=== PATIENT | male | born 1970 ===

== ENCOUNTER 2019-09-04 19:05 | Inpatient (IN) | payer OTHER, SELFPAY ==
[2019-09-04 19:24] LABS: #Basophils 0.1 thou/uL (0.0-0.2); #Eosinphils 0.4 thou/uL (0.0-0.7); #Lymphocytes 3.7 thou/uL (1.20-3.40); #Neutrophils 8.2 thou/uL (1.40-6.50); %Basophils 0.9 % (0.0-1.0); %Eosinophils 2.9 % (0.0-10.0); %Lymphocytes 27.7 % (21.0-51.0); %Monocytes 7.1 % (0.0-10.0); %Neutrophils 61.4 % (42.0-75.0); Hemoglobin 16.3 g/dL (14.0-18.0); Mean Corpuscular HGB CONC 34.6 g/dL (32.0-36.0); Mean Corpuscular Hemoglobin 32.2 pg (27.0-31.0); Platelet Count 231 thou/uL (130-400); RBC Distribution Width 11.6 % (11.5-14.5); Red Blood Cell (RBC) Count 5.06 mill/uL (4.70-6.10); White Blood Cell (WBC) Count 13.4 thou/uL (4.8-10.8)
--- NOTE | 2019-09-04 19:35 | RAD ---
PORTABLE CHEST: 09/04/19 HISTORY: Chest pain. Heart size and mediastinum are within normal limits. The lungs are clear of infiltrates. No significa nt bony findings. IMPRESSION: No active intrathoracic disease. POS: [facility]
[2019-09-04 19:46] LABS: ALT (SGPT) 31 U/L (8-55); AST (SGOT) 15 U/L (5-34); Albumin 4.2 g/dL (3.5-5.0); Alkaline Phosphatase 93 U/L (40-110); Anion Gap 14 mmol/L (10-20); BUN (Urea Nitrogen) 10 mg/dL (8.9-20.6); Bilirubin, Total 0.4 mg/dL (0.2-1.2); CK (CPK) 101 U/L (30-200); Calc. Creatinine Clearance 0 mL/min (70-130); Calcium 9.1 mg/dL (7.8-10.44); Carbon Dioxide 25 mmol/L (22-29); Chloride 100 mmol/L (98-107); Estimated GFR-MDRD 73; Globulin 3.2 g/dL (2.4-3.5); Glucose 253 mg/dL (70-105); Lipase 42 U/L (8-78); Potassium 3.9 mmol/L (3.5-5.1); Protein, Total 7.4 g/dL (6.0-8.3); Sodium 135 mmol/L (136-145)
[2019-09-04 20:06] LABS: CKMB 1.8 ng/mL (0-6.6)
[2019-09-04] MEDS ORDERED: Aspirin Chewable 81 MG TAB ONE (21:34)
--- NOTE | 2019-09-04 21:35 | PDOC.FPRHP ---
- History of Present Illness Chief Complaint: Chest Pain, Nausea History of Present Illness: Patient is a 49 yo male who presents with chest pain that started about 2 hours ago, radiated into both shoulders and down into arms and neck. Says he had similar chest pain on Saturday that lasted about 30 min and went away on its own. He describes the chest pain as indigestion and like someone sitting on his chest. He states the pain is a little better now but still present. He also reports a mild headache, nausea, lightheadeness. Did also have some SOB earlier that has since resolved. Patient normally sees Dr. Dhaliwal, says he had a stress test in the past but its been at least 2-3 years and doesn't remember results. He has been treated in the past for HTN with unknown BP med and for T2DM with Metformin but no longer takes any medications. ED Course: Given ASA 324 mg in ED - Home Medications Medication Instructions Recorded Confirmed Type No Known 09/04/19 09/04/19 History - History PMHx: HTN, DM2 PSHx: right knee surgery, tonsillectomy FHx: Mother breast cancer, father has "heart issues" Social: smokes 2 ppd, occasional EtOH use, denies illicit drug use - Review of Systems General: denies: fever/chills, weight/appetite/sleep changes, night sweats, fatigue Eyes: denies: vision changes ENT: denies: nasal congestion, rhinorrhea Respiratory: reports: shortness of breath. denies: cough, congestion, exercise intolerance Cardiovascular: reports: chest pain. denies: palpitation, edema Gastrointestinal: reports: nausea. denies: vomiting, diarrhea, constipation Genitourinary: denies: incontinence, dysuria Skin: denies: rashes, lesions Musculoskeletal: denies: pain, tenderness, swelling Neurological: denies: numbness, syncope, weakness Psychological: denies: anxiety, depression - Vital signs BP: 160/103 HR: 86 RR: 17 Tmax: 97.9 Pox: 94% on ra Wt: 90 kg - Physical Exam Constitutional: NAD, awake, alert and oriented, well developed HEENT: normocephalic and atraumatic, PERRLA, EOMI, grossly normal vision, grossly normal hearing, MMM Neck: supple, trachea midline, no JVD Chest: no-tender to palpation, no lesions Heart: RRR, normal S1/S2, no murmurs/rubs/gallops, pulses present, no edema Lungs: CTAB, no respiratory distress, good air movement, no rales/rhonchi, no wheezing Abdomen: soft, non-tender, bowel sounds present, no masses/distention Musculoskeletal: normal structure, normal tone, ROM grossly normal Neurological: no focal deficit, normal sensation Skin: no rash/lesions, good turgor, no jaundice Heme/Lymphatic: no unusual bruising or bleeding Psychiatric: normal mood and affect, intact recent and remote memory FMR H&P: Results - Labs Result Diagrams: 09/05/19 01:34 09/05/19 01:34 Lab results: WBC 13.4 thou/uL (4.8-10.8) H 09/04/19 19:15 Hgb 16.3 g/dL (14.0-18.0) 09/04/19 19:15 Hct 47.0 % (42.0-52.0) 09/04/19 19:15 MCV 93.0 fL (78.0-98.0) 09/04/19 19:15 Plt Count 231 thou/uL (130-400) 09/04/19 19:15 Neutrophils % 61.4 % (42.0-75.0) 09/04/19 19:15 Sodium 135 mmol/L (136-145) L 09/04/19 19:15 Potassium 3.9 mmol/L (3.5-5.1) 09/04/19 19:15 Chloride 100 mmol/L (98-107) 09/04/19 19:15 Carbon Dioxide 25 mmol/L (22-29) 09/04/19 19:15 BUN 10 mg/dL (8.9-20.6) 09/04/19 19:15 Creatinine 1.07 mg/dL (0.7-1.3) 09/04/19 19:15 Glucose 253 mg/dL (70-105) H 09/04/19 19:15 Calcium 9.1 mg/dL (7.8-10.44) 09/04/19 19:15 Total Bilirubin 0.4 mg/dL (0.2-1.2) 09/04/19 19:15 AST 15 U/L (5-34) 09/04/19 19:15 ALT 31 U/L (8-55) 09/04/19 19:15 Alkaline Phosphatase 93 U/L (40-110) 09/04/19 19:15 Creatine Kinase 101 U/L (30-200) 09/04/19 19:15 CK-MB (CK-2) 1.8 ng/mL (0-6.6) 09/04/19 19:15 Serum Total Protein 7.4 g/dL (6.0-8.3) 09/04/19 19:15 Albumin 4.2 g/dL (3.5-5.0) 09/04/19 19:15 Lipase 42 U/L (8-78) 09/04/19 19:15 - EKG Interpretation EKG: NSR, no ST/T wave changes - Radiology Interpretation Chest x-ray Status: report reviewed by me (no acute cardiopulmonary process) FMR H&P: A/P - Problem List (1) Atypical chest pain Current Visit: Yes Status: Acute Code(s): R07.89 - OTHER CHEST PAIN (2) HTN (hypertension) Current Visit: Yes Status: Acute Code(s): I10 - ESSENTIAL (PRIMARY) HYPERTENSION Qualifiers: Hypertension type: unspecified Qualified Code(s): I10 - Essential (primary ) hypertension (3) Hyperglycemia Current Visit: Yes Status: Acute Code(s): R73.9 - HYPERGLYCEMIA, UNSPECIFIED - Plan Patient is a 49 yo male with chest pain who is admitted for ACS r/o: #Atypical chest pain, ACS rule out -S/P 324mg aspirin in ED, continue daily -apply Nitro paste now -Nitro prn for chest pain -plan for exercise stress test in AM -initial troponin 0.032, will trend -CXR negative -EKG sinus rhythm, LVH -Heart score of 5 -check labs: Mag, Phos, TSH, A1c, FLP -EKG prn for chest pain if reoccurence #HTN -vitals q4h -Nitro paste to be given -Will restart Lisinopril 10mg daily #Hyperglycemia -glucose 253 today, will check A1c -hyperglycemic protocol in place with mild SSI & bedtime correctional scale -consider restarting Metformin #Tobacco abuse -Smoking cessation counseling -start Nicotine patch after stress test completed Diet: NPO at midnight VTE: SCDs, Walking program Code status: Full PCP: Dr. Dhaliwal Disposition: Stable, admit to obs on telemetry unit. Anticipate LOS < 2 days. FMR H&P: Upper Level - Plan Date/Time: 09/04/192131 I, Beni Morataya DO, have evaluated this patient and agree with findings/plan as outlined by logistics intern resident. Pertinent changes/additions are listed here. This is a 49 yo male with a pmh of HTN, DM2, and tobacco abuse who presents to the ER with a cc of chest pain. He states it has been going on since 1730 this evening. He describes the pain as candace to indigestion and someone sitting on his chest. He states the pain radiates to his back, neck, and both arms. He states the pain is constant and is somewhat improved at this time. He has had the pain once before on his drive to work but it resolved spontaneously. He states he was not doing anything when the pain started. Nothing specific has made it better or worse. He takes no medications on a regular basis. Objective: Vitals: BP 160/103, HR 86, RR 17, Temp 97.9, SpO2 94% on RA, Wt 90 General: NAD HEENT: AT, NC, MMM Cardo: RRR, no murmur Respiratory: CTAB Extremities: cap refill <2 sec, no edema Please see logistics intern note for further details A/P Atypical chest pain, ACS rule out -Admit to tele obs -S/P 324mg aspirin -Nitro for pain control -AM stress test -Trend troponins -CXR negative -EKG sinus rhythm, LVH -Heart score of 5 HTN -Will restart lisinopril DM2, undiagnosed -A1c, hyperglycemic protocol -Likely start metformin if positive Tobacco abuse -Counselled on cessation -Nicotine patch Code: Full Prophylaxis: Walking program Family: None at bedside Fluids: SL Diet: NPO at midnight Disposition: DC in 1-2 days PCP: Dr. Dhaliwal Addendum - Attending - Attending Attestation Date/Time: 09/05/191956 I personally evaluated the patient and discussed the management with Dr. Joseph following admission last night. I agree with the History, Examination, Assessment and Plan documented above with any addition or exceptions noted below.
[2019-09-04] MEDS ORDERED: Ondansetron ODT 4 MG TAB SL PRN (22:43)
[2019-09-04] MEDS ORDERED: Acetaminophen 325 MG TAB PO PRN ×2 (22:43→23:11)
[2019-09-04] MEDS ORDERED: Ondansetron PF 4 MG/2 ML Vial IVP PRN ×2 (22:43→23:11)
[2019-09-04 23:10] VITALS: BMI 32.5
[2019-09-04] MEDS ORDERED: Nitroglycerin 0.4 MG TAB (25 Tab Bottle) PO PRN (23:11)
[2019-09-04] MEDS ORDERED: Senokot S 8.6-50 MG TAB PO PRN (23:11)
[2019-09-04] MEDS ORDERED: HumaLOG 300 UNITS/3 ML VIAL SC PRN ×2 (23:11)
[2019-09-04] MEDS ORDERED: Dextrose 5% in Water 1,000 ML IV PRN (23:11)
[2019-09-04] MEDS ORDERED: Ondansetron ODT 4 MG TAB PO PRN (23:11)
[2019-09-04] MEDS ORDERED: Dextrose 50% Abboject 50 ML SYRINGE SLOW IVP PRN (23:11)
[2019-09-04 23:20] LABS: Troponin I 0.216 ng/mL (< 0.028)
[2019-09-04 23:30] LABS: Hemoglobin A1c 7.8 % (4.0-6.0)
[2019-09-04] MEDS ORDERED: Nitroglycerin 2% Ointment 1 INCH/1 GM Packet TOP SCH (23:30)
[2019-09-04 23:59] LABS: Magnesium 2.1 mg/dL (1.6-2.6); Phosphorus 3.4 mg/dL (2.3-4.7)
[2019-09-05] MEDS ORDERED: Enoxaparin Sodium 100 MG/ML SYRINGE SC SCH ×3 (00:22→21:00)
[2019-09-05] MEDS ORDERED: Famotidine 20 MG TAB PO SCH (00:30)
[2019-09-05 01:42] LABS: #Basophils 0.1 thou/uL (0.0-0.2); #Eosinphils 0.4 thou/uL (0.0-0.7); #Monocytes 1.2 thou/uL (0.11-0.59); #Neutrophils 8.3 thou/uL (1.40-6.50); %Eosinophils 2.6 % (0.0-10.0); %Lymphocytes 28.6 % (21.0-51.0); %Monocytes 8.5 % (0.0-10.0); %Neutrophils 59.3 % (42.0-75.0); Hemoglobin 16.3 g/dL (14.0-18.0); Mean Corpuscular Hemoglobin 32.3 pg (27.0-31.0); Mean Corpuscular Volume 94.9 fL (78.0-98.0); Mean Platelet Volume 7.7 fL (7.4-10.4); Platelet Count 231 thou/uL (130-400); RBC Distribution Width 11.6 % (11.5-14.5); Red Blood Cell (RBC) Count 5.06 mill/uL (4.70-6.10); White Blood Cell (WBC) Count 13.9 thou/uL (4.8-10.8)
[2019-09-05 02:03] LABS: ALT (SGPT) 30 U/L (8-55); AST (SGOT) 30 U/L (5-34); Albumin 4.1 g/dL (3.5-5.0); Alkaline Phosphatase 89 U/L (40-110); Anion Gap 11 mmol/L (10-20); BUN (Urea Nitrogen) 11 mg/dL (8.9-20.6); Bilirubin, Total 0.3 mg/dL (0.2-1.2); Calc. Creatinine Clearance 124 mL/min (70-130); Calcium 9.5 mg/dL (7.8-10.44); Carbon Dioxide 30 mmol/L (22-29); Cardiac Risk 6.6 (Less than 4.5); Chloride 103 mmol/L (98-107); Cholesterol 224 mg/dl (< 200 Desired); Estimated GFR-MDRD 81; Glucose 156 mg/dL (70-105); HDL Cholesterol 34 mg/dL (>60 Neg Risk); LDL Cholesterol, Calculated 141 mg/dL; Potassium 4.1 mmol/L (3.5-5.1); Protein, Total 7.1 g/dL (6.0-8.3); Sodium 140 mmol/L (136-145); Triglycerides 245 mg/dL (Less than 150)
[2019-09-05 02:08] LABS: Troponin I 1.162 ng/mL (< 0.028)
--- NOTE | 2019-09-05 06:12 | PDOC.FM ---
Addendum entered and electronically signed by Roger Hubbard DO 09/05/19 08:25 : NSTEMI - elevated troponins. Likely unstable angina. Cardiology to see patient this morning. Original Note: - Subjective Subjective: Pt denies any events overnight. When asked about chest pain he denies any or anything similar to the pain that brought him into the ED but does note some mild intermittent heartburn as he lies down. When asked about his home medications he states that he stopped them on his own since he was "doing good" . Denies discussing this with his PCP. Discussed the plan to talk to cardiology and the possibility of a cath which he is agreeable to. Currently denies any SOB , nausea, radiating pain. - Objective Vital Signs & Weight: Vital Signs (12 hours) Temp Pulse Resp BP Pulse Ox 09/05/19 03:30 76 18 114/68 92 L 09/04/19 23:55 98.4 F 76 16 128/79 94 L 09/04/19 23:11 97 09/04/19 22:35 98.0 F 73 14 168/101 H 97 Weight Weight 97.069 kg Result Diagrams: 09/05/19 01:34 09/05/19 01:34 Phys Exam - Physical Examination Constitutional: NAD HEENT: moist MMs, sclera anicteric JVD noted while laying around 20 degrees Respiratory: clear to auscultation bilateral Cardiovascular: RRR, no significant murmur, no rub CP not reproducible with palpation Gastrointestinal: soft, non-tender, no distention, positive bowel sounds Musculoskeletal: no edema, pulses present Neurological: moves all 4 limbs Psychiatric: normal affect, A&O x 3 Skin: no rash, cap refill <2 seconds Dx/Plan (1) Atypical chest pain Code(s): R07.89 - OTHER CHEST PAIN Status: Acute (2) HTN (hypertension) Code(s): I10 - ESSENTIAL (PRIMARY) HYPERTENSION Status: Acute Qualifiers: Hypertension type: unspecified Qualified Code(s): I10 - Essential (primary ) hypertension (3) Hyperglycemia Code(s): R73.9 - HYPERGLYCEMIA, UNSPECIFIED Status: Acute - Plan Plan: Patient is a 49 yo male with chest pain who is admitted for ACS r/o: Atypical chest pain, ACS rule out -325 asa daily -Nitro prn for chest pain -troponin uptrending, now positive at 3.51, will continue to trend - started therapeutic lovenox -will consult cardiology, stress vs cath -EKG sinus rhythm, LVH HTN -Will restart Lisinopril 10mg daily Hyperglycemia -glucose 253 today, A1c 7.8 -hyperglycemic protocol in place with mild SSI & bedtime correctional scale -pt refuses metformin, will need to f/u outpt for therapy decisions Tobacco abuse -Smoking cessation counseling -start Nicotine patch after stress test completed Diet: NPO at midnight VTE: SCDs, Walking program Code status: Full PCP: Dr. Dhaliwal Disposition: Obs tele, will discuss elevated troponins today with cardiology for stress vs cath. Addendum - Attending - Attending Attestation Date/Time: 09/05/19 1005 I personally evaluated the patient and discussed the management with Dr. Hubbard. I agree with the History, Examination, Assessment and Plan documented above with any addition or exceptions noted below. Patient admitted for ACS. Appears to be NSTEMI at this time. Cardiology consulted and likely heart cath today. Further mgmt pending that result. Risk stratification shows hyperlipidemia that will need treatment as well as uncontrolled DM.
[2019-09-05] MEDS: Nitroglycerin 2% Ointment 1 INCH/1 GM Packet TOP SCH ×3 (06:42→21:01)
[2019-09-05] MEDS ORDERED: Communication Order-Pharmacy FS SCH (08:30)
[2019-09-05] MEDS ORDERED: Diazepam 5 MG TAB PO SCH (08:30)
[2019-09-05 08:38] LABS: Troponin I 6.112 ng/mL (< 0.028)
--- NOTE | 2019-09-05 08:54 | CON ---
DATE OF CONSULTATION: 09/05/2019 REASON FOR CONSULTATION: Non-ST elevation myocardial infarction with ongoing pain. HISTORY OF PRESENT ILLNESS: Mr. Hdz is a 49-year-old gentleman, who came to the hospital last night with chest pain up across his upper chest and shoulders and up in the upper back and into his arms. The patient's pain was relieved. He was given aspirin, also given enoxaparin and nitrates. The patient states he has "indigestion," now occasional discomfort in the upper chest and back , also some last night, but it is mild compared to what he had last night. PAST MEDICAL HISTORY: Negative for any cardiac operations or procedures. MEDICATIONS: None. ALLERGIES: NONE. SOCIAL HISTORY: Smoked up until this admission. REVIEW OF SYSTEMS: CONSTITUTIONAL: No significant weight gain or loss. VISION: No changes. HEARING: No changes. PULMONARY: No cough or wheezing. GASTROINTESTINAL: No nausea, vomiting, or diarrhea. SKIN: No rashes. NEUROLOGIC: No unilateral weakness or numbness. PSYCHIATRIC: No unusual depression or anxiety. PHYSICAL EXAMINATION: GENERAL: This is a pleasant 49-year-old man, resting comfortably. VITAL SIGNS: Blood pressure is 113/56, pulse 66 and regular. LUNGS: Clear. CARDIAC: Normal S1, normal S2. ABDOMEN: Obese, nontender. EXTREMITIES: Warm and dry. No clubbing, cyanosis, or edema. He has good peripheral pulses. LABORATORY DATA: Initial troponin was 1.1, followup is 3.5. EKG; sinus rhythm, 0.[address] elevation in leads II and III, biphasic T-wave in lead III. Also had one episode of 4-beat ventricular tachycardia. Cholesterol, LDL is 141. ASSESSMENT: 1. Non-ST elevation myocardial infarction. 2. History of smoking. 3. He was hypertensive on admission. 4. Received Lovenox at 1 a.m. PLAN: 1. We will proceed to cardiac catheterization aiming for 10 a.m. 2. Cardiac cath discussed, risks and benefits of procedure, risk of stroke, heart attack, iodine allergy, loss of blood supply to leg or kidney, stent thrombosis, stent restenosis. He understands and wishes to proceed. Job ID: [id number] [facility]
[2019-09-05] MEDS: Aspirin 325 mg Enteric Coated Tablet PO SCH (09:04)
[2019-09-05] MEDS: Sodium Chloride 0.9% 1,000 ML IV SCH ×2 (09:04→16:26)
[2019-09-05] MEDS: Famotidine 20 MG TAB PO SCH ×2 (09:04→21:02)
[2019-09-05] MEDS: Lisinopril 10 MG TAB PO SCH (09:04)
[2019-09-05] MEDS ORDERED: Iopamidol 370 76% 100 ML VIAL ONE (09:06)
[2019-09-05] MEDS ORDERED: Heparin 10,000 UNITS/1 ML VIAL ONE (09:46)
[2019-09-05] MEDS ORDERED: Fentanyl 100 MCG/2 ML VIAL ONE (10:29)
[2019-09-05] MEDS ORDERED: Midazolam HCl 2 mg/2 ml Vial ONE (10:29)
[2019-09-05] MEDS ORDERED: Nitroglycerin 100MG/250ML BOT 250 ML ONE (10:32)
[2019-09-05] MEDS ORDERED: Sodium Chloride 0.9% 200 ML IV PRN (11:42)
[2019-09-05] MEDS ORDERED: Acetaminophen/Codeine 30-300mg Tablet PO PRN ×2 (11:42)
[2019-09-05] MEDS ORDERED: Nitroglycerin 0.4 MG TAB (25 Tab Bottle) SL PRN (11:42)
[2019-09-05] MEDS ORDERED: Acetaminophen/Codeine 30-300mg Tablet ONE (14:30)
[2019-09-05 14:35] LABS: Troponin I 12.243 ng/mL (< 0.028)
[2019-09-05] MEDS: Atorvastatin Calcium 40 MG TAB PO SCH (21:02)
[2019-09-06] MEDS: Nitroglycerin 2% Ointment 1 INCH/1 GM Packet TOP SCH ×2 (05:58→20:31)
--- NOTE | 2019-09-06 06:14 | PDOC.FM ---
- Subjective Subjective: Pt states that he had no problems with the cath procedure yesterday or following. He has severe CAD and will require a CABG with pt reports is to be done on Saturday. Denies any current chest pain or complaints. Pt continues to refuse any lab draws or insulin administration currently. Discussed importance of managing his glucose as a risk factor for his heart disease. - Objective Vital Signs & Weight: Vital Signs (12 hours) Temp Pulse Resp BP BP Pulse Ox 09/06/19 04:00 98.0 F 87 20 112/61 96 09/06/19 00:00 73 18 09/05/19 19:58 98.4 F 86 16 111/66 96 Weight Weight 97.069 kg I&O: 09/04/19 09/05/19 09/06/19 06:59 06:59 06:59 Intake Total 120 2550 Balance 120 2550 Result Diagrams: 09/05/19 01:34 09/05/19 01:34 Phys Exam - Physical Examination Constitutional: NAD HEENT: moist MMs, sclera anicteric Neck: full ROM Respiratory: no wheezing, clear to auscultation bilateral Cardiovascular: RRR, no significant murmur Gastrointestinal: soft, non-tender Musculoskeletal: no edema, pulses present Neurological: moves all 4 limbs Psychiatric: normal affect, A&O x 3 Dx/Plan (1) NSTEMI (non-ST elevated myocardial infarction) Code(s): I21.4 - NON-ST ELEVATION (NSTEMI) MYOCARDIAL INFARCTION Status: Acute (2) HTN (hypertension) Code(s): I10 - ESSENTIAL (PRIMARY) HYPERTENSION Status: Acute Qualifiers: Hypertension type: unspecified Qualified Code(s): I10 - Essential (primary ) hypertension (3) Coronary artery disease Code(s): I25.10 - ATHSCL HEART DISEASE OF [place] CORONARY ARTERY W/O ANG PCTRS Status: Acute (4) Diabetes mellitus type 2 with complications, uncontrolled Code(s): E11.8 - TYPE 2 DIABETES MELLITUS WITH UNSPECIFIED COMPLICATIONS; E11.65 - TYPE 2 DIABETES MELLITUS WITH HYPERGLYCEMIA Status: Acute - Plan Plan: Patient is a 49 yo male with chest pain who is admitted for ACS r/o: NSTEMI -325 asa daily -Nitro prn for chest pain -troponin uptrended to 12 yesterday -cardiac cath by Dr. Araiza yesterday with severe CAD -pt reports plan for CABG in 2 days HTN -Continue Lisinopril 10mg daily Hyperglycemia -A1c 7.8 -pt refuses metformin and SSI -chart shows uninsured but pt states he has some form of insurance -will start jardiance while inpt w/ CM consult for acquiring as outpt -sulfonylurea not good option for patient with known heart disease Tobacco abuse -Smoking cessation counseling -start Nicotine patch after stress test completed Diet: NPO at midnight VTE: SCDs, Walking program Code status: Full PCP: Dr. Dhaliwal Disposition: Inpt tele, cardiac cath yesterday showed severe right and left sided coronary atherosclerosis. Per pt is set to have CABG performed on Saturday of this week. Will continue to attempt to optimize pt for discharge going forward. Addendum - Attending - Attending Attestation Date/Time: 09/06/19 9191 I personally evaluated the patient and discussed the management with Dr. Hubbard. I agree with the History, Examination, Assessment and Plan documented above with any addition or exceptions noted below. Patient stable. Awaiting further cardiology recs but it sounds like he may be going for CABG early this week for his CAD and NSTEMI.
[2019-09-06] MEDS: Sodium Chloride 0.9% 1,000 ML IV SCH (08:04)
[2019-09-06] MEDS: Famotidine 20 MG TAB PO SCH ×2 (08:40→20:30)
[2019-09-06] MEDS: Aspirin 325 mg Enteric Coated Tablet PO SCH (08:40)
[2019-09-06] MEDS: Empagliflozin 10 MG TAB PO SCH (08:43)
[2019-09-06] MEDS: Lisinopril 10 MG TAB PO SCH (08:49)
[2019-09-06] MEDS ORDERED: Communication Order-Pharmacy FS SCH (08:52)
[2019-09-06] MEDS: Atorvastatin Calcium 40 MG TAB PO SCH (20:30)
[2019-09-07 06:13] LABS: Critical Call Chem Troponin I RESULT DECREASING; Troponin I 9.744 ng/mL (< 0.028)
[2019-09-07] MEDS: Nitroglycerin 2% Ointment 1 INCH/1 GM Packet TOP SCH ×3 (06:31→21:11)
--- NOTE | 2019-09-07 07:19 | PDOC.FM ---
- Subjective Subjective: NAEO. Patient remains stable on floor. No complaints this AM. - Objective MAR Reviewed: Yes Vital Signs & Weight: Vital Signs (12 hours) Temp Pulse Resp BP BP Pulse Ox 09/07/19 04:00 98.4 F 71 18 127/80 94 L 09/07/19 00:23 94 L 09/06/19 20:00 98.4 F 74 18 110/72 94 L Weight Weight 97.296 kg I&O: 09/06/19 09/07/19 09/08/19 06:59 06:59 06:59 Intake Total 2550 2600 Balance 2550 2600 Result Diagrams: 09/10/19 04:17 09/10/19 04:17 Phys Exam - Physical Examination Constitutional: NAD HEENT: moist MMs Neck: supple, full ROM Respiratory: no wheezing, no rales, no rhonchi, clear to auscultation bilateral Cardiovascular: RRR, no significant murmur Gastrointestinal: soft, no distention, positive bowel sounds Neurological: non-focal, moves all 4 limbs Psychiatric: normal affect, A&O x 3 Skin: normal turgor Dx/Plan (1) Atypical chest pain Code(s): R07.89 - OTHER CHEST PAIN Status: Resolved (2) Coronary artery disease Code(s): I25.10 - ATHSCL HEART DISEASE OF [place] CORONARY ARTERY W/O ANG PCTRS Status: Chronic (3) Diabetes mellitus type 2 with complications, uncontrolled Code(s): E11.8 - TYPE 2 DIABETES MELLITUS WITH UNSPECIFIED COMPLICATIONS; E11.65 - TYPE 2 DIABETES MELLITUS WITH HYPERGLYCEMIA Status: Chronic (4) HTN (hypertension) Code(s): I10 - ESSENTIAL (PRIMARY) HYPERTENSION Status: Chronic Qualifiers: Hypertension type: unspecified Qualified Code(s): I10 - Essential (primary ) hypertension (5) Hyperglycemia Code(s): R73.9 - HYPERGLYCEMIA, UNSPECIFIED Status: Acute (6) NSTEMI (non-ST elevated myocardial infarction) Code(s): I21.4 - NON-ST ELEVATION (NSTEMI) MYOCARDIAL INFARCTION Status: Acute - Plan Plan: Patient is a 49 yo male with chest pain who is admitted for ACS r/o who was found to have an NSTEMI in the setting of severe CAD: NSTEMI - Continue 325 asa daily & RONALD nitropaste - s/p cardiac cath by Dr. Araiza on 09/04 & noted to have severe CAD - Patient to undergo CABG on 09/[address] Carvalho HTN - Continue nitro & holding entresto per cards recs. BP controlled. DMII -A1c 7.8 -pt refuses all DM meds - Goal to keep BG levels between 140-180 while inpatient. Needs counseling on diabetes & good outpatient follow-up arianna. in setting of CAD. - Shotblast Operator consulted for DM diet teaching. Tobacco abuse -Smoking cessation counseling -Nicotine patch Diet: HH, NPO at midnight VTE: SCDs, Walking program Code status: Full IVFs: SL Abx: None PCP: Dr. Dhaliwal Disposition: Inpt tele, cardiac cath on 09/04 showed severe right and left sided CAD. Patient is RONALD to have CABG performed on 09/07. Addendum - Attending - Attending Attestation Date/Time: 09/15/19 1529 I personally evaluated the patient and discussed the management with Dr. Mcclellan on 09/07/19. I agree with the History, Examination, Assessment and Plan documented above with any addition or exceptions noted below. Medical mgt. s/p NSTEMI, awaiting CABG.
[2019-09-07] MEDS: Aspirin 325 mg Enteric Coated Tablet PO SCH (08:32)
[2019-09-07] MEDS: Empagliflozin 10 MG TAB PO SCH (08:32)
[2019-09-07] MEDS: Famotidine 20 MG TAB PO SCH ×2 (08:33→20:39)
[2019-09-07] MEDS: Lisinopril 10 MG TAB PO SCH (08:36)
[2019-09-07] MEDS: Atorvastatin Calcium 40 MG TAB PO SCH (20:38)
[2019-09-08] MEDS ORDERED: CEFAZOLIN 2 GM IVPB SCH (02:30)
[2019-09-08] MEDS: Nitroglycerin 2% Ointment 1 INCH/1 GM Packet TOP SCH (04:47)
[2019-09-08] MEDS: Lisinopril 10 MG TAB PO SCH (05:06)
[2019-09-08] MEDS ORDERED: Albumin 5% 500 ML ONE ×2 (06:16→06:21)
--- NOTE | 2019-09-08 06:16 | PDOC.FM ---
- Subjective Subjective: NAEO. Patient down for cath at time of rounding. Will examine later today once back from surgery. - Objective MAR Reviewed: Yes Vital Signs & Weight: Vital Signs (12 hours) Temp Pulse Resp BP BP Pulse Ox 09/08/19 05:06 139/82 09/08/19 03:49 98.4 F 76 16 139/82 92 L 09/08/19 01:41 93 L 09/07/19 19:22 98.0 F 81 16 125/82 93 L Weight Weight 93.304 kg I&O: 09/06/19 09/07/19 09/08/19 06:59 06:59 06:59 Intake Total 2550 2600 3100 Balance 2550 2600 3100 Result Diagrams: 09/05/19 01:34 09/05/19 01:34 Phys Exam - Physical Examination See Subjective, patient down for procedure Dx/Plan (1) Atypical chest pain Code(s): R07.89 - OTHER CHEST PAIN Status: Resolved (2) Coronary artery disease Code(s): I25.10 - ATHSCL HEART DISEASE OF [place] CORONARY ARTERY W/O ANG PCTRS Status: Chronic (3) Diabetes mellitus type 2 with complications, uncontrolled Code(s): E11.8 - TYPE 2 DIABETES MELLITUS WITH UNSPECIFIED COMPLICATIONS; E11.65 - TYPE 2 DIABETES MELLITUS WITH HYPERGLYCEMIA Status: Chronic (4) HTN (hypertension) Code(s): I10 - ESSENTIAL (PRIMARY) HYPERTENSION Status: Chronic Qualifiers: Hypertension type: unspecified Qualified Code(s): I10 - Essential (primary ) hypertension (5) Hyperglycemia Code(s): R73.9 - HYPERGLYCEMIA, UNSPECIFIED Status: Acute (6) NSTEMI (non-ST elevated myocardial infarction) Code(s): I21.4 - NON-ST ELEVATION (NSTEMI) MYOCARDIAL INFARCTION Status: Acute - Plan Plan: Patient is a 49 yo male with chest pain who is admitted for ACS r/o who was found to have an NSTEMI in the setting of severe CAD: NSTEMI - Trop uptrended to 12 but has since downtrended. Has been stable on floor on [facility] nitropaste & ASA per cards - s/p cardiac cath by Dr. Araiza on 09/04 & noted to have severe CAD - Patient to undergo CABG today with Dr. Carvalho HTN - Holding meds per CV surg for procedure this AM & will resume as tolerated by patient per CV surg & cards recs post-op DMII - A1c 7.8 - Goal to keep BG levels between 140-180 while inpatient. Will again credit support counselor on diabetes & good outpatient follow-up arianna. in setting of CAD - Will continue SSI and jardiance post-op Tobacco abuse -Smoking cessation counseling -Nicotine patch post-op PRN Diet: NPO for CABG VTE: SCDs, Walking program Code status: Full IVFs: SL Abx: None PCP: Dr. Dhaliwal Disposition: Patient to undergo multi-vessel CABG this AM with Dr. Carvalho.
[2019-09-08] MEDS ORDERED: Midazolam HCl 2 mg/2 ml Vial ONE ×2 (06:27→07:06)
[2019-09-08] MEDS ORDERED: Vecuronium 10 MG VIAL ONE ×2 (06:27→09:07)
[2019-09-08] MEDS ORDERED: Fentanyl 100 MCG/2 ML VIAL ONE (06:27)
[2019-09-08] MEDS ORDERED: Midazolam HCl 5 mg/5 ml Vial ONE (06:27)
[2019-09-08] MEDS ORDERED: Dexmedetomidine 200 MCG/2 ML VIAL ONE (06:27)
[2019-09-08] MEDS ORDERED: Heparin 10,000 UNITS/1 ML VIAL 30,000 UNITS in Sodium Chloride 0.9% 1,000 ML FS SCH (07:00)
[2019-09-08] MEDS ORDERED: Insulin Regular 300 UNITS/3 ML VIAL ONE (08:53)
[2019-09-08] MEDS ORDERED: Calcium Chloride 1 GM/10 ML Abboject SYRINGE ONE (09:07)
[2019-09-08] MEDS ORDERED: Magnesium Sulfate 1 GM/2 ML VIAL ONE (09:07)
[2019-09-08] MEDS ORDERED: Thrombin 5000 UNITS/5 ML VIAL ONE (09:07)
[2019-09-08] MEDS ORDERED: Heparin 30,000 units/30 ml VIAL ONE (09:07)
[2019-09-08] MEDS ORDERED: Ketorolac Tromethamine 30 MG/ML VIAL ONE (09:07)
[2019-09-08] MEDS ORDERED: Aminocaproic Acid 5 GM/20 ML VIAL ONE (09:07)
[2019-09-08] MEDS ORDERED: Papaverine 60 MG/2 ML VIAL ONE (09:07)
[2019-09-08] MEDS ORDERED: EPHEDRINE 25 MG/5 ML SYRINGE ONE (09:07)
[2019-09-08] MEDS ORDERED: Lidocaine 2% PF 5 ML VIAL ONE (09:07)
[2019-09-08] MEDS ORDERED: Cardioplegic Soln 1,000 ML BAG ONE (09:07)
[2019-09-08] MEDS ORDERED: Glycopyrrolate 0.2 MG/ML 5 ML SYRINGE ONE (09:07)
[2019-09-08] MEDS ORDERED: Potassium Chloride 60 MEQ/30 ML VIAL ONE (09:07)
[2019-09-08] MEDS ORDERED: Sodium Bicarb 50 MEQ/50 ML Abboject 8.4% SYRINGE ONE (09:07)
[2019-09-08] MEDS ORDERED: Protamine Sulfate 50 MG/5 ML VIAL ONE (09:07)
[2019-09-08] MEDS ORDERED: PHENYLEPHRINE-NS 100 MCG/ML 10 ML SYRINGE ONE (09:07)
[2019-09-08] MEDS ORDERED: Heparin 5,000 UNITS/ML VIAL ONE (09:07)
[2019-09-08] MEDS ORDERED: Dexamethasone 20 MG/5 ML VIAL ONE (09:07)
[2019-09-08] MEDS ORDERED: Lidocaine 1% PF 5 ML VIAL ONE ×2 (09:07)
[2019-09-08] MEDS ORDERED: Ondansetron PF 4 MG/2 ML Vial ONE (09:07)
[2019-09-08] MEDS: Empagliflozin 10 MG TAB PO SCH (09:30)
[2019-09-08] MEDS: Aspirin 325 mg Enteric Coated Tablet PO SCH (09:30)
[2019-09-08] MEDS: Famotidine 20 MG TAB PO SCH (09:30)
[2019-09-08] MEDS ORDERED: DOPamine 400 MG/D5W 250 ML 250 ML IVPB PRN (11:00)
[2019-09-08] MEDS ORDERED: Nitroglycerin 50 MG/250 ML BOT 250 ML IVPB PRN (11:00)
[2019-09-08] MEDS ORDERED: Fentanyl 100 MCG/2 ML VIAL SLOW IVP PRN (11:00)
[2019-09-08] MEDS ORDERED: Ondansetron PF 4 MG/2 ML Vial IVP PRN (11:00)
[2019-09-08] MEDS ORDERED: Morphine 2 MG/ML SYRINGE SLOW IVP PRN (11:00)
[2019-09-08] MEDS ORDERED: Norepinephrine 8 MG in Dextrose 5% in Water 242 ML IVPB PRN (11:00)
[2019-09-08] MEDS ORDERED: Bisacodyl 10 MG SUPP PR PRN (11:00)
[2019-09-08] MEDS ORDERED: HYDROcodone/Acetaminophen 5/325 mg Tablet PO PRN (11:00)
[2019-09-08] MEDS ORDERED: Post-Op Insulin Drip Protocol IVPB ONE (11:00)
[2019-09-08] MEDS ORDERED: Guaifenesin DM 100-10/5 ML UDCUP PO PRN (11:00)
[2019-09-08] MEDS ORDERED: Mag-Al 1200 mg/1200 mg/30 ML UDCUP PO PRN (11:00)
[2019-09-08] MEDS ORDERED: Promethazine HCl 25 MG/ML VIAL IM PRN (11:00)
[2019-09-08] MEDS ORDERED: Bisacodyl 5 MG TAB PO PRN (11:00)
[2019-09-08] MEDS ORDERED: Potassium Chloride 20 MEQ/100 ML PREMIX BAG IVPB PRN (11:00)
[2019-09-08] MEDS ORDERED: Acetaminophen 325 MG TAB PO PRN (11:00)
[2019-09-08] MEDS ORDERED: hydrALAZINE 20 MG/ML VIAL SLOW IVP PRN (11:00)
[2019-09-08] MEDS ORDERED: niCARdipine 25 MG in Sodium Chloride 0.9% 250 ML 250 ML IVPB PRN (11:00)
[2019-09-08] MEDS ORDERED: Hetastarch 6% 500 ML 500 ML IVPB PRN (11:00)
[2019-09-08] MEDS ORDERED: Magnesium 2 GM/50 ML 2 GM in Premix Bag 1 BAG IVPB SCH (11:00)
[2019-09-08] MEDS ORDERED: Dextrose 5% in Water 1,000 ML IV PRN (11:11)
[2019-09-08] MEDS ORDERED: HUMULIN R 100 UNITS in Sodium Chloride 0.9% 100 ML IVPB SCH (11:11)
[2019-09-08] MEDS ORDERED: Dextrose 50% Abboject 50 ML SYRINGE SLOW IVP PRN (11:11)
[2019-09-08] MEDS ORDERED: Insulin Regular 300 UNITS/3 ML VIAL SC PRN (11:11)
[2019-09-08 11:30] LABS: #Eosinphils 0.1 thou/uL (0.0-0.7); #Lymphocytes 1.1 thou/uL (1.20-3.40); #Monocytes 0.8 thou/uL (0.11-0.59); #Neutrophils 17.1 thou/uL (1.40-6.50); %Basophils 0.3 % (0.0-1.0); %Eosinophils 0.5 % (0.0-10.0); %Lymphocytes 5.5 % (21.0-51.0); %Monocytes 4.4 % (0.0-10.0); %Neutrophils 89.4 % (42.0-75.0); Hemoglobin 13.6 g/dL (14.0-18.0); Mean Corpuscular HGB CONC 34.3 g/dL (32.0-36.0); Mean Corpuscular Hemoglobin 32.1 pg (27.0-31.0); Mean Corpuscular Volume 93.6 fL (78.0-98.0); Platelet Count 167 thou/uL (130-400); RBC Distribution Width 11.5 % (11.5-14.5); Red Blood Cell (RBC) Count 4.25 mill/uL (4.70-6.10); White Blood Cell (WBC) Count 19.1 thou/uL (4.8-10.8)
[2019-09-08 11:31] LABS: INR-International Normal Ratio 1.1; PTT 33.2 SEC (22.9-36.1); Prothrombin Time 14.6 SEC (12.0-14.7)
[2019-09-08 11:35] LABS: Anion Gap 12 mmol/L (10-20); BUN (Urea Nitrogen) 14 mg/dL (8.9-20.6); Calc. Creatinine Clearance 124 mL/min (70-130); Calcium 8.6 mg/dL (7.8-10.44); Carbon Dioxide 23 mmol/L (22-29); Chloride 108 mmol/L (98-107); Estimated GFR-MDRD 85; Glucose 104 mg/dL (70-105); Sodium 139 mmol/L (136-145)
--- NOTE | 2019-09-08 11:35 | RAD ---
EXAM: CHEST ONE VIEW HISTORY: Post open heart surgery. COMPARISON: 09/04/2019 FINDINGS: There has been interval postsurgical changes related to CABG. Right subclavian central venous cathete r is noted in place with tip overlying the expected location of the right atrium. Mediastinal drains are noted in place. Cardiac silhouette is magnified by projection. Pulmonary vasculature is wi thin normal limits. No pneumothorax or pleural effusion is identified. There is mild atelectasis overlying the left hilar region. No other interval change from prior exam. IMPRESSION: Interval postsurgical changes related to CABG with lines and tubes in place.
--- NOTE | 2019-09-08 11:51 | OP ---
DATE OF PROCEDURE: 09/07/2019 PREOPERATIVE DIAGNOSIS: Status post inferior myocardial infarction. PROCEDURES PERFORMED: Coronary artery bypass graft x2, left internal mammary artery to an LAD measuring 1.5 mm with posterior plaque, and saphenous vein graft to a 1.5 mm distal right coronary artery. INBOUND CUSTOMER SERVICE AGENT: Dr. Fischer. TRANSFUSION: None. DESCRIPTION OF PROCEDURE: After adequate anesthesia had been obtained, the patient was prepped and draped. I performed a median sternotomy, entering the left pleura with a saw. After opening the pericardium, the inferior surface of the heart was inspected. It appeared that the distal right ventricular free wall probably had infarcted. There appeared to be a bypassable target on the right side. Following this, Dr. Fischer harvested the left greater saphenous vein from the ankle using an open technique while I performed a left internal mammary artery harvest. The patient was heparinized and the mammary divided distally and passed posterior to the thymus gland. The aorta and right atrium were cannulated, and the right atrium was fairly well under the right sternal edge. The patient was placed on cardiopulmonary bypass. Aorta cross clamped and a liter of cold blood cardioplegia given through the aortic root. The right coronary artery was opened mid to distal portion and saphenous vein anastomosed here. The LAD was then opened and the left internal mammary artery anastomosed to the LAD. Cross-clamp was removed and the partial occluding clamp placed and a single proximal anastomosis performed on the aortic root. The patient was then weaned from cardiopulmonary bypass. Cannula was removed. Protamine given systemically and the aortic cannulation site secured with a 4-0 Prolene suture. Mediastinal and left pleural drains were placed. There was slight excess on the vein graft and the mammary graft, but they lie nicely in the pericardium. The sternum was then reapproximated with a combination of #7 interrupted wire as well as two zip ties. Vancomycin paste on the sternal edges, platelet rich blood and platelet poor plasma on the bone and subcutaneous tissue. Skin and subcutaneous tissue were closed in layers, and the patient is to be taken to the ICU in guarded condition. Job ID: [id number]
[2019-09-08] MEDS: Ketorolac Tromethamine 30 MG/ML VIAL IVP SCH ×3 (11:54→23:55)
[2019-09-08] MEDS: Lactated Ringer's 1,000 ML IV SCH (12:00)
[2019-09-08] MEDS: CEFAZOLIN 2 GM in Premix Bag 1 BAG IVPB SCH ×2 (14:09→22:39)
[2019-09-08 16:56] LABS: Hemoglobin 14.2 g/dL (14.0-18.0)
[2019-09-08 17:12] LABS: Potassium 4.5 mmol/L (3.5-5.1)
--- NOTE | 2019-09-08 17:51 | PDOC.BPN ---
- Brief Progress Note Subjective: Patient examined in CCU once more alert following procedure this AM. Reports feeling like he's "been run over by a truck" which he states was expected. Otherwise, denies any N/V, fever/chills, & is tolerating PO. Objective: Vitals: HR 75 BP 93/55 RR 17 O2 sat 93% on RA Tmax 99F Constitutional: NAD HEENT: moist MMs Neck: supple, full ROM Respiratory: no wheezing, no rales, no rhonchi, clear to auscultation bilateral Cardiovascular: RRR, no significant murmur Gastrointestinal: soft, no distention, positive bowel sounds Neurological: non-focal, moves all 4 limbs Psychiatric: normal affect, A&O x 3 Skin: normal turgor w/ clean, dry & intact dressing over center of chest noted A&P: Continue to monitor closely overnight in the CCU with likely transfer to telemetry tomorrow per CV surg recs & clinical course.
[2019-09-08] MEDS: Fentanyl 100 MCG/2 ML VIAL SLOW IVP PRN ×2 (19:44→22:49)
[2019-09-08] MEDS ORDERED: Famotidine/PF 20 mg/2ml Vial SLOW IVP SCH (21:00)
[2019-09-08] MEDS: Atorvastatin Calcium 40 MG TAB PO SCH (21:01)
[2019-09-09] MEDS: HYDROcodone/Acetaminophen 5/325 mg Tablet PO PRN ×4 (00:28→17:14)
[2019-09-09] MEDS: Lactated Ringer's 1,000 ML IV SCH (00:33)
[2019-09-09 04:23] LABS: #Monocytes 1.6 thou/uL (0.11-0.59); #Neutrophils 13.9 thou/uL (1.40-6.50); %Basophils 0.1 % (0.0-1.0); %Eosinophils 0.1 % (0.0-10.0); %Lymphocytes 11.3 % (21.0-51.0); %Monocytes 9.2 % (0.0-10.0); %Neutrophils 79.3 % (42.0-75.0); Hemoglobin 11.2 g/dL (14.0-18.0); Mean Corpuscular HGB CONC 34.4 g/dL (32.0-36.0); Mean Corpuscular Hemoglobin 32.3 pg (27.0-31.0); Mean Corpuscular Volume 94.1 fL (78.0-98.0); Mean Platelet Volume 8.3 fL (7.4-10.4); Platelet Count 157 thou/uL (130-400); RBC Distribution Width 11.4 % (11.5-14.5); Red Blood Cell (RBC) Count 3.46 mill/uL (4.70-6.10); White Blood Cell (WBC) Count 17.5 thou/uL (4.8-10.8)
[2019-09-09 04:37] LABS: Anion Gap 13 mmol/L (10-20); BUN (Urea Nitrogen) 17 mg/dL (8.9-20.6); Calc. Creatinine Clearance 0 mL/min (70-130); Calcium 7.9 mg/dL (7.8-10.44); Carbon Dioxide 21 mmol/L (22-29); Chloride 105 mmol/L (98-107); Estimated GFR-MDRD 73; Glucose 135 mg/dL (70-105); Sodium 135 mmol/L (136-145)
[2019-09-09] MEDS: Ketorolac Tromethamine 30 MG/ML VIAL IVP SCH ×4 (06:27→23:49)
[2019-09-09] MEDS: CEFAZOLIN 2 GM in Premix Bag 1 BAG IVPB SCH (06:28)
--- NOTE | 2019-09-09 06:39 | PDOC.FM ---
- Subjective Subjective: Patient required intermittent O2 supplementation overnight via NC but on RA at time of exam. Denies any chest pain, SOB, N/V, or fever/chills overnight. Does say he just gets winded more easily when trying to talk. - Objective MAR Reviewed: Yes Vital Signs & Weight: Vital Signs (12 hours) Temp Pulse Resp Pulse Ox 09/09/19 04:00 98.0 F 09/09/19 01:42 90 16 95 09/09/19 00:00 98.4 F 09/08/19 20:00 98 F 95 09/08/19 18:56 80 16 95 Weight Weight 94.2 g Most Recent Monitor Data Heart Rate from ECG 84 NIBP 98/59 NIBP BP-Mean 72 Respiration from ECG 19 SpO2 85 I&O: 09/07/19 09/08/19 09/09/19 06:59 06:59 06:59 Intake Total 2600 3100 2953.7 Output Total 2290 Balance 2600 3100 663.7 Result Diagrams: 09/09/19 04:04 09/09/19 04:04 Radiology: CXR: Phys Exam - Physical Examination Constitutional: NAD sitting up in wheelchair HEENT: moist MMs Neck: supple, full ROM Respiratory: no wheezing, no rales, no rhonchi, clear to auscultation bilateral slightly tachypneic Cardiovascular: RRR, no significant murmur wearing compression stockings Neurological: non-focal, moves all 4 limbs Psychiatric: normal affect, A&O x 3 Dx/Plan (1) Atypical chest pain Code(s): R07.89 - OTHER CHEST PAIN Status: Resolved (2) Coronary artery disease Code(s): I25.10 - ATHSCL HEART DISEASE OF [place] CORONARY ARTERY W/O ANG PCTRS Status: Chronic (3) Diabetes mellitus type 2 with complications, uncontrolled Code(s): E11.8 - TYPE 2 DIABETES MELLITUS WITH UNSPECIFIED COMPLICATIONS; E11.65 - TYPE 2 DIABETES MELLITUS WITH HYPERGLYCEMIA Status: Chronic (4) HTN (hypertension) Code(s): I10 - ESSENTIAL (PRIMARY) HYPERTENSION Status: Chronic Qualifiers: Hypertension type: unspecified Qualified Code(s): I10 - Essential (primary ) hypertension (5) Hyperglycemia Code(s): R73.9 - HYPERGLYCEMIA, UNSPECIFIED Status: Acute (6) NSTEMI (non-ST elevated myocardial infarction) Code(s): I21.4 - NON-ST ELEVATION (NSTEMI) MYOCARDIAL INFARCTION Status: Acute - Plan Plan: Patient is a 49YOM with chest pain who was admitted for ACS r/o & found to have an NSTEMI in the setting of severe CAD. NSTEMI 2/2 multivessel CAD - Trop uptrended to 12 with concomitant chest pain that has since but has since downtrended & resolved. - s/p cardiac cath by Dr. Araiza on 09/04 & noted to have severe multivessel CAD - Post-op day #1 s/p 2V CABG with Dr. Carvalho. Continue routine post-op care. - Continue ASA & statin therapy. HTN - Will resume as tolerated by patient per CV surg & cards recs post-op. DMII - A1c 7.8 - Goal to keep BG levels between 140-180 while inpatient. - Will continue SSI and jardiance. Tobacco abuse - Smoking cessation counseling - Nicotine patch post-op PRN Diet: HH, CC VTE: SCDs, Walking program Code status: Full IVFs: LR @ 75mL/hr Abx: None PCP: Dr. Dhaliwal Disposition: Post-op day #1 s/p 2V CABG with Dr. Carvalho. Continue routine post- CABG care. Anticipated LOS an additional 2-3 days pending post-op course & CV surg recs.
[2019-09-09] MEDS ORDERED: Guaifenesin DM 100-10/5 ML UDCUP PO PRN (07:21)
[2019-09-09] MEDS ORDERED: Ondansetron PF 4 MG/2 ML Vial IVP PRN (07:21)
[2019-09-09] MEDS ORDERED: Nitroglycerin 0.4 MG TAB (25 Tab Bottle) SL PRN (07:21)
[2019-09-09] MEDS ORDERED: Lactated Ringer's 1,000 ML IV SCH (07:21)
[2019-09-09] MEDS ORDERED: Acetaminophen 325 MG TAB PO PRN (07:21)
[2019-09-09] MEDS ORDERED: Mineral Oil ENEMA PR PRN (07:21)
[2019-09-09] MEDS ORDERED: Bisacodyl 5 MG TAB PO PRN (07:21)
[2019-09-09] MEDS ORDERED: Mag-Al 1200 mg/1200 mg/30 ML UDCUP PO PRN (07:21)
[2019-09-09] MEDS ORDERED: Bisacodyl 10 MG SUPP PR PRN (07:21)
--- NOTE | 2019-09-09 07:22 | PRG ---
DATE OF SERVICE: 09/09/2019 SUBJECTIVE: He is now postoperative day #1 following a two-vessel coronary bypass graft following right coronary artery myocardial infarction. OBJECTIVE: VITAL SIGNS: His blood pressure has been running 90-100 with a heart rate in the 80s. Urine output has been 30-50 an hour and chest tube output total is 150. His creatinine is 1.07 and his hemoglobin is 11.2. His chest x-ray is clear. He is sitting up in bed, comfortable, and I answered a number of questions that he had this morning. Chest tubes were removed. His lungs were clear. PLAN: At this time is to transfer him to the floor. I will ask the hospitalist to get involved to help decide what oral diabetic agents would be a good choice to start him on as far as treatment goes. He has taken metformin in the past and did not like its side effects. Otherwise, no other changes today. Job ID: [id number]
[2019-09-09] MEDS ORDERED: Insulin Regular 300 UNITS/3 ML VIAL SC PRN (07:51)
[2019-09-09] MEDS ORDERED: Dextrose 50% Abboject 50 ML SYRINGE SLOW IVP PRN (07:51)
[2019-09-09] MEDS ORDERED: Dextrose 5% in Water 1,000 ML IV PRN (07:51)
--- NOTE | 2019-09-09 08:10 | RAD ---
SINGLE VIEW CHEST: Date: 09/09/2019 COMPARISON: 09/08/2019. HISTORY: Status post open heart surgery. FINDINGS: Single view of the chest shows an enlarged cardiomediastinal silhouette. The patient is status post s ternotomy. The central venous catheter is unchanged in position. There are mediastinal drains. There is atelectasis in the left lung base. No pneumothorax is seen. IMPRESSION: Left basilar atelectasis. POS: EAA
[2019-09-09] MEDS ORDERED: Aspirin 325 MG TAB PO SCH (09:00)
[2019-09-09] MEDS: Aspirin 325 mg Enteric Coated Tablet PO SCH (09:14)
[2019-09-09] MEDS: Famotidine 20 MG TAB PO SCH ×2 (09:14→21:08)
--- NOTE | 2019-09-09 09:20 | PRG ---
DATE OF SERVICE: 09/09/2019 SUBJECTIVE: Mr. Hdz is sitting up in a chair. His blood pressure is in the high 90s systolic. He feels well. No chest pain or pressure. OBJECTIVE: VITAL SIGNS: Blood pressure is currently 99/63, pulse 90. LUNGS: Clear. CARDIAC: Normal S1, normal S2. ABDOMEN: Soft and nontender. EXTREMITIES: There is no significant edema. ASSESSMENT: 1. Status post recent inferior myocardial infarction. 2. Status post bypass surgery x2, internal mammary artery to the left anterior descending artery, vein graft to distal right coronary artery. PLAN: 1. Intravenous fluids have been discontinued. 2. He is on aspirin. 3. Statin. 4. Beta blockers later once tolerated. He probably had some degree of right ventricular infarct. We will have to be rather slow in adding medicines for his lower blood pressure. Job ID: [id number]
[2019-09-09] MEDS: Empagliflozin 10 MG TAB PO SCH (09:59)
--- NOTE | 2019-09-09 13:34 | EKG ---
Test Reason : Blood Pressure : / mmHG Vent. Rate : 089 BPM Atrial Rate : 089 BPM P-R Int : 096 ms QRS Dur : 106 ms QT Int : 354 ms P-R-T Axes : 049 -31 071 degrees QTc Int : 430 ms Sinus rhythm with short NV Left axis deviation Left ventricular hypertrophy with repolarization abnormality Nonspecific ST abnormality Abnormal ECG Confirmed by DARYL MYERS ([id number]), book editor CHITO MORIN ([id number]) on 09/09/2019 1:33:57 PM Referred By: Confirmed By:DARYL MYERS
[2019-09-09] MEDS: Fentanyl 100 MCG/2 ML VIAL SLOW IVP PRN ×2 (15:43→18:08)
[2019-09-09] MEDS: Enoxaparin Sodium 40 MG/0.4 ML SYRINGE SC SCH (21:07)
[2019-09-09] MEDS: Rosuvastatin 20 MG TAB PO SCH (21:08)
[2019-09-10] MEDS: HYDROcodone/Acetaminophen 5/325 mg Tablet PO PRN ×4 (03:14→20:25)
[2019-09-10 04:50] LABS: #Basophils 0.1 thou/uL (0.0-0.2); #Eosinphils 0.1 thou/uL (0.0-0.7); #Lymphocytes 1.9 thou/uL (1.20-3.40); #Monocytes 1.7 thou/uL (0.11-0.59); %Basophils 0.4 % (0.0-1.0); %Eosinophils 0.3 % (0.0-10.0); %Monocytes 9.1 % (0.0-10.0); %Neutrophils 80.2 % (42.0-75.0); Hemoglobin 12.3 g/dL (14.0-18.0); Mean Corpuscular Hemoglobin 32.2 pg (27.0-31.0); Mean Corpuscular Volume 94.7 fL (78.0-98.0); Mean Platelet Volume 8.3 fL (7.4-10.4); Platelet Count 162 thou/uL (130-400); RBC Distribution Width 11.7 % (11.5-14.5); White Blood Cell (WBC) Count 18.7 thou/uL (4.8-10.8)
[2019-09-10 05:10] LABS: Anion Gap 14 mmol/L (10-20); BUN (Urea Nitrogen) 17 mg/dL (8.9-20.6); Calc. Creatinine Clearance 0 mL/min (70-130); Calcium 8.6 mg/dL (7.8-10.44); Carbon Dioxide 22 mmol/L (22-29); Chloride 102 mmol/L (98-107); Estimated GFR-MDRD 74; Glucose 123 mg/dL (70-105); Potassium 4.3 mmol/L (3.5-5.1); Sodium 134 mmol/L (136-145)
[2019-09-10] MEDS: Ketorolac Tromethamine 30 MG/ML VIAL IVP SCH (05:31)
--- NOTE | 2019-09-10 07:02 | PRG ---
DATE OF SERVICE: 09/10/2019 The patient remains afebrile with blood pressure in the 95 to 120 ranges. Heart rate is in the mid 80s. His weight is recorded at 2:19 compared with anywhere from 205 to 214 prior to admission. White count is stable at about 18,000, hemoglobin is 12.3. Creatinine stable at 1.06. Sugars have been in the 150 to 200 range on sliding-scale insulin. The patient is sleeping this morning and I will return later when he is awake. Job ID: [id number]
--- NOTE | 2019-09-10 07:27 | PDOC.FM ---
- Subjective Subjective: NAEO. Patient's vitals remain stable. Tolerating PO. Reports pain is decently controlled. Ambulatory. - Objective MAR Reviewed: Yes Vital Signs & Weight: Vital Signs (12 hours) Temp Pulse Resp BP Pulse Ox 09/10/19 03:00 99.2 F 94 16 120/70 92 L Weight Weight 99.427 kg Most Recent Monitor Data Heart Rate from ECG 91 NIBP 99/63 NIBP BP-Mean 75 Respiration from ECG 28 SpO2 85 I&O: 09/09/19 09/10/19 09/11/19 06:59 06:59 06:59 Intake Total 3067.7 3891 Output Total 2350 2650 Balance 717.7 1241 Result Diagrams: 09/10/19 04:17 09/10/19 04:17 Phys Exam - Physical Examination Constitutional: NAD HEENT: moist MMs Neck: supple, full ROM Respiratory: no wheezing, no rales, no rhonchi, clear to auscultation bilateral Cardiovascular: RRR, no significant murmur dressing clean, dry & intact over chest Gastrointestinal: soft, non-tender, positive bowel sounds Neurological: non-focal, moves all 4 limbs Psychiatric: normal affect, A&O x 3 Dx/Plan (1) Atypical chest pain Code(s): R07.89 - OTHER CHEST PAIN Status: Resolved (2) Coronary artery disease Code(s): I25.10 - ATHSCL HEART DISEASE OF [place] CORONARY ARTERY W/O ANG PCTRS Status: Chronic (3) Diabetes mellitus type 2 with complications, uncontrolled Code(s): E11.8 - TYPE 2 DIABETES MELLITUS WITH UNSPECIFIED COMPLICATIONS; E11.65 - TYPE 2 DIABETES MELLITUS WITH HYPERGLYCEMIA Status: Chronic (4) HTN (hypertension) Code(s): I10 - ESSENTIAL (PRIMARY) HYPERTENSION Status: Chronic Qualifiers: Hypertension type: unspecified Qualified Code(s): I10 - Essential (primary ) hypertension (5) Hyperglycemia Code(s): R73.9 - HYPERGLYCEMIA, UNSPECIFIED Status: Acute (6) NSTEMI (non-ST elevated myocardial infarction) Code(s): I21.4 - NON-ST ELEVATION (NSTEMI) MYOCARDIAL INFARCTION Status: Acute - Plan Plan: Patient is a 49YOM with chest pain who was admitted for ACS r/o & found to have an NSTEMI in the setting of severe CAD. NSTEMI 2/2 multivessel CAD - Trop uptrended to 12 with concomitant chest pain that has since but has since downtrended & resolved. - s/p cardiac cath by Dr. Araiza on 09/04 & noted to have severe multivessel CAD - Post-op day #2 s/p 2V CABG with Dr. Carvalho. Continue routine post-op care. - Continue ASA & statin therapy. HTN - Will resume meds as tolerated by patient per CV surg & cards recs. DMII - A1c 7.8 - Goal to keep BG levels between 140-180 while inpatient. - Will continue SSI and jardiance. Tobacco abuse - Smoking cessation counseling - Nicotine patch post-op PRN Diet: HH, CC VTE PPX: Lovenox GI PPX: pepcid Code status: Full IVFs: SL Abx: None PCP: Dr. Dhaliwal Disposition: Post-op day #2 s/p 2V CABG with Dr. Carvalho. Continue routine post- CABG care. Anticipated LOS an additional ~1-2 days pending post-op course & Cards & CV surg recs.
[2019-09-10] MEDS: Aspirin 325 mg Enteric Coated Tablet PO SCH (08:19)
[2019-09-10] MEDS: Empagliflozin 10 MG TAB PO SCH (08:19)
[2019-09-10] MEDS: Famotidine 20 MG TAB PO SCH ×2 (08:19→20:25)
[2019-09-10] MEDS: Furosemide 40 MG TAB PO SCH (08:19)
--- NOTE | 2019-09-10 09:11 | PRG ---
DATE OF SERVICE: 09/10/2019 SUBJECTIVE: Mr. Hdz looks well today. No chest pain or shortness of breath. He has no complaints. OBJECTIVE: VITAL SIGNS: Blood pressure 118/64, pulse 86 and regular. LUNGS: Clear. CARDIAC: Normal S1. Normal S2. ABDOMEN: Soft, nontender. EXTREMITIES: No significant edema. ASSESSMENT: 1. Status post inferior myocardial infarction. 2. Status post bypass surgery. PLAN: 1. Start low-dose beta nida. 2. He is on medium-dose atorvastatin. 3. Aspirin. 4. Possibly home in 1 to 2 days. Job ID: [id number]
[2019-09-10] MEDS: Enoxaparin Sodium 40 MG/0.4 ML SYRINGE SC SCH (20:25)
[2019-09-10] MEDS: Rosuvastatin 20 MG TAB PO SCH (20:25)
[2019-09-11] MEDS: HYDROcodone/Acetaminophen 5/325 mg Tablet PO PRN ×2 (03:26→08:24)
--- NOTE | 2019-09-11 06:26 | PDOC.FM ---
- Subjective Subjective: NAEO. BG much better controlled yesterday on Jardiance. Reports he is going home today. - Objective MAR Reviewed: Yes Vital Signs & Weight: Vital Signs (12 hours) Temp Pulse Resp BP BP Pulse Ox 09/11/19 05:02 94 L 09/11/19 03:13 98.4 F 89 20 128/77 93 L 09/10/19 19:30 98 F 86 18 118/73 95 Weight Weight 98.384 kg Most Recent Monitor Data Heart Rate from ECG 91 NIBP 99/63 NIBP BP-Mean 75 Respiration from ECG 28 SpO2 85 I&O: 09/09/19 09/10/19 09/11/19 06:59 06:59 06:59 Intake Total 3067.7 3891 1610 Output Total 2350 2650 4490 Balance 717.7 1241 -2880 Result Diagrams: 09/10/19 04:17 09/10/19 04:17 Phys Exam - Physical Examination Constitutional: NAD HEENT: moist MMs Neck: supple, full ROM Respiratory: clear to auscultation bilateral Cardiovascular: RRR, no significant murmur Neurological: non-focal, moves all 4 limbs Psychiatric: normal affect, A&O x 3 Skin: normal turgor Deviation from normal: sternotomy incision & chest tube insertion sites clean, dry & intact Dx/Plan (1) Atypical chest pain Code(s): R07.89 - OTHER CHEST PAIN Status: Resolved (2) Coronary artery disease Code(s): I25.10 - ATHSCL HEART DISEASE OF [place] CORONARY ARTERY W/O ANG PCTRS Status: Chronic (3) Diabetes mellitus type 2 with complications, uncontrolled Code(s): E11.8 - TYPE 2 DIABETES MELLITUS WITH UNSPECIFIED COMPLICATIONS; E11.65 - TYPE 2 DIABETES MELLITUS WITH HYPERGLYCEMIA Status: Chronic (4) HTN (hypertension) Code(s): I10 - ESSENTIAL (PRIMARY) HYPERTENSION Status: Chronic Qualifiers: Hypertension type: unspecified Qualified Code(s): I10 - Essential (primary ) hypertension (5) Hyperglycemia Code(s): R73.9 - HYPERGLYCEMIA, UNSPECIFIED Status: Acute (6) NSTEMI (non-ST elevated myocardial infarction) Code(s): I21.4 - NON-ST ELEVATION (NSTEMI) MYOCARDIAL INFARCTION Status: Acute - Plan Plan: Patient is a 49YOM with chest pain who was admitted for ACS r/o & found to have an NSTEMI in the setting of severe CAD. NSTEMI 2/2 multivessel CAD - Trop uptrended to 12 with concomitant chest pain that has since but has since downtrended & resolved. - s/p cardiac cath by Dr. Araiza on 09/04 & noted to have severe multivessel CAD - Post-op day #3 s/p 2V CABG with Dr. Carvalho. Continue routine post-op care. - Continue ASA & statin therapy. HTN - Continue BB therapy & will d/c on low dose HENRIET[place]-I therapy as well. DMII - A1c 7.8 - Goal to keep BG levels between 140-180 while inpatient. - Will continue SSI and jardiance. Tobacco abuse - Smoking cessation counseling - Nicotine patch post-op PRN Diet: HH, CC VTE PPX: Lovenox GI PPX: pepcid Code status: Full IVFs: SL Abx: None PCP: Dr. Dhaliwal Disposition: Post-op day #3 s/p 2V CABG with Dr. Carvalho. D/c home with close follow-up with PCP, CV surg & Cards as indicated in d/c orders.
[2019-09-11 07:22] VITALS: BP 136/80; TEMP 98
[2019-09-11] MEDS: Aspirin 325 mg Enteric Coated Tablet PO SCH (08:22)
[2019-09-11] MEDS: Empagliflozin 10 MG TAB PO SCH (08:22)
[2019-09-11] MEDS: Famotidine 20 MG TAB PO SCH (08:22)
[2019-09-11] MEDS: Furosemide 40 MG TAB PO SCH (08:23)
[2019-09-11] MEDS ORDERED: Lisinopril 2.5 MG TAB PO SCH (09:00)
--- NOTE | 2019-09-11 09:58 | PRG ---
DATE OF SERVICE: 09/11/2019 SUBJECTIVE: Mr. Hdz is doing well. No complaints. OBJECTIVE: VITAL SIGNS: His blood pressure 136/80, pulse 70. GENERAL: He looks alert and oriented. EXTREMITIES: He has some mild edema on the leg where the vein was harvested. No edema on the opposite leg. Based on the COVID crisis, we tried to limit contact physically with the patient. Therefore, I did not examine him. ASSESSMENT: 1. Status post bypass, doing well. 2. Status post inferior myocardial infarction with a small right coronary occlusion. 3. Status post LAD bypass with internal mammary and vein to the right coronary. PLAN: 1. Continue medical therapy. We will give him Lasix 20 mg a day for 7 days. 2. Potassium 10 mEq a day for 7 days. 3. He is on Jardiance, aspirin, lisinopril 2.5 mg a day, Toprol-XL 25 mg, Crestor 20 mg a day. 4. We will see him in the office in about a month. We want to aggressively treat his cholesterol. He has diffuse disease in his vessels. The LDL cholesterol on the was 141, but that was a day after he came, I suspect it was higher than that previously. Job ID: [id number]
--- NOTE | 2019-09-11 12:06 | DIS ---
DATE OF ADMISSION: 09/04/2019 DATE OF DISCHARGE: 09/11/2019 RESIDENT: Mi Mcclellan MD ADMITTING ATTENDING: Anup Linda MD DISCHARGE ATTENDING: Christiano Riley MD CONSULTS: 1. Cardiology, Dr. Vivian Araiza. 2. Cardiovascular Surgery, Dr. Tu Carvalho. PROCEDURES: 1. Chest x-ray on 09/04/2019, notable for no intrathoracic disease. 2. Left heart cardiac catheterization on 09/04/2019, notable for significant stenosis of the left anterior descending and distal right coronary artery 3. 09/07/2019, Three-vessel coronary artery bypass grafting of the left internal mammary artery to left anterior descending and saphenous vein graft to distal right coronary artery 4. Chest x-ray on 09/08/2019, notable for interval postsurgical changes related to coronary artery bypass grafting with chest tubes in place. 5. Chest x-ray on 09/09/2019, notable for left bibasilar atelectasis. PRIMARY DIAGNOSES: 1. Non-ST elevation myocardial infarction secondary to severe coronary artery disease, status post two-vessel coronary artery bypass grafting. 2. Coronary artery disease. SECONDARY DIAGNOSES: 1. Hypertension. 2. Noninsulin-dependent type 2 diabetes mellitus. 3. Tobacco use. DISCHARGE MEDICATIONS: 1. Aspirin 325 mg p.o. daily. 2. Jardiance 10 mg p.o. q.a.m. 3. [place] one to two tabs q.4 hours p.r.n. 4. Lisinopril 2.5 mg p.o. daily. 5. Toprol-XL 25 mg p.o. daily. DISCONTINUED MEDICATIONS: None. 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 On presentation to the ER the patient was hypertensive at 168/109 but all other vitals were WNLs. He was given 324mg of ASA & his EKG was noted to have no significant ST/T wave changes. His labs were notable for an indeterminant troponin I of 0.032 but were otherwise, WNLs. However, given his multiple comorbidities & reported FH of heart disease giving him a heart score of 5 he was admitted for monitoring overnight for a planned CAD workup the following morning. Overnight, the patient's troponin I trended up to 12 so he was determined to be suffering from an NSTEMI. Cardiology, Dr. Vivian Araiza, was consulted and the patient underwent LHC the following morning. Upon catheterization Dr. Araiza noted that the patient had severe multivessel disease as described above and consulted CV surgery, Dr. Tu Carvalho for likely need for CABG. The patient underwent a CABG on 09/07/[address] Carvalho as noted above and tolerated the procedure well. He had a routine recovery over the next 2 days on the telemetry floor and by the date of discharge was cleared to be discharged home with help from family with close follow-up with cardiac rehab, his PCP Dr. Dhaliwal, and Dr. Carvalho. Regarding the patient's DMII, the patient refused SSI and/or metformin during his hospitalization but was counseled multiple times by physicians, nursing staff, and dietary services on the importance of controlling his DM in the setting of CAD. His A1c while inpatient was 7.8 and due to his refusal to restart metformin, he was agreeable to be discharged on PO Jardiance to be continued as an outpatient. Regarding his HTN, cardiology started the patient on a low dose BB and the primary team restarted him on low dose HENRIET[place]-I therapy in the setting of DMII for its added renal protective effects. The patient was agreeable to this therapy. DISPOSITION: Stable DISCHARGE INSTRUCTIONS: LOCATION: Home DIET: HH, Low Na, Diabetic Diet ACTIVITY: Activity as tolerated w/ restrictions per CV surgery instructions FOLLOW-UP: The patient was instructed to follow-up with his PCP, Dr. Sam Dhaliwal within 1 week of discharge. He was to see Dr. Carvalho on 09/28/[address] Araiza within 1 month of discharge. Lastly, he was to follow-up with cardiac rehab on 09/17/19. Job ID: [id number] [facility]
--- NOTE | 2019-09-11 12:59 | DIS ---
DATE OF ADMISSION: 09/04/2019 DATE OF DISCHARGE: 09/11/2019 HOSPITAL COURSE: This is 49-year-old gentleman who presented one week ago with chest pain and a bump in his troponin that peaked at about 12. He underwent cardiac catheterization showing an acute occlusion of a right coronary artery that was suspected to be nondominant or codominant as well as a critical disease in his LAD diagonal system. He was taken to the operating room on 09/06, where he underwent bypass grafting to the LAD as well as to a small distal right coronary artery. His postoperative course was uneventful. He will be discharged home on Jardiance daily as well as aspirin 1 a day, Crestor 20 mg at bedtime, which could be changed to Lipitor or atorvastatin for cost reasons. He will also receive metoprolol-XL 25 once a day, lisinopril 2.5 daily, and I have sent a prescription for his [place]. He was on no medications prior to admission and he did have a hemoglobin A1c on admission of 7.8. He has also been counseled on smoking cessation. Discharge and followup instructions have been given. Job ID: [id number]
--- NOTE | 2019-09-11 13:42 | PQF ---
CLINICAL DOCUMENTATION IMPROVEMENT CLARIFICATION FORM: ICD-10 Updated PLEASE DO AN ADDENDUM TO THE PROGRESS NOTE WITH ANY DOCUMENTATION UPDATES OR ADDITIONS AND CARRY THROUGH TO DC SUMMARY. THANK YOU. DATE: 09/11/2019 ATTN: Dr. Mcclellan/ Attending Dr. Keys Please exercise your independent, professional judgment in responding to the clarification form. Clinical indicators are provided on the bottom of this form for your review Please check appropriate box(s): Conflicting documentation was noted in the Medical Record, please clarify if patient is being treated/monitored for: [ x ] NSTEMI 2/2 multivessel CAD [ ] Status post Inferior myocardial infarction [ ] Other diagnosis [ ] Unable to determine In addition, please specify: Present on Admission (POA): [x ] Yes [ ] No [ ] Unable to determine For continuity of documentation, please document condition throughout progress notes and discharge summary. Thank You. CLINICAL INDICATORS - SIGNS / SYMPTOMS/ LABS / RESULTS AND LOCATION IN EMR 09/08 (Jose G) Status post recent inferior myocardial infarction. Plan: Beta blockers later once tolerated. He probably had some degree of r ventricular infarct. 09/06 (Deven) Operative Note Preop DX: Status post inferior myocardial infarction. Description of procedure: After opening the pericardium, the inferior surface of the heart was inspected. It appeared that the distal right ventricular free wall probably had infarcted. 09/10 ( Eleuterio) NSTEMI 2/2 multivessel CAD 09/10 (Jose G) Status post Inferior myocardial infarction with a small r coronary occlusion RISKS: H&P 09/04: HTN, DM 2 09/08 (Deven) POD 1 following a two-vessel coronary bypass graft following r coronary artery myocardial infarction. TREATMENT: Cardiology Consult 09/05/201909/06 Operative Note: CABG x2 Thank you, Jessenia (This form is maintained as a part of the permanent medical record) 2014 [employer]. All Rights Reserved Jessenia Riley RN, BSN [email or web address]
== END 2019-09-11 09:45 | disposition home or self-care (01) | DRG 234 ==
LOC: ERS 19:05 → OBSVTOIN 21:35 → 2SW 21:35 → 2NO 09-05 13:17 → CCU 09-08 08:24 → 2NO 09-09 09:06
PROVIDERS: ADMIT Family Medicine; ATTEND Family Medicine
PROC: 4A023N7 Measurement of Cardiac Sampling and Pressure, Left Heart, Percutaneous Approach (ICD-10-PCS; 2019-09-05)
PROC: B2111ZZ Fluoroscopy of Multiple Coronary Arteries using Low Osmolar Contrast (ICD-10-PCS; 2019-09-05)
PROC: 02100Z9 Bypass Coronary Artery, One Artery from Left Internal Mammary, Open Approach (ICD-10-PCS; principal; 2019-09-07)
PROC: 021009W Bypass Coronary Artery, One Artery from Aorta with Autologous Venous Tissue, Open Approach (ICD-10-PCS; 2019-09-07)
PROC: 06BQ0ZZ Excision of Left Saphenous Vein, Open Approach (ICD-10-PCS; 2019-09-07)
PROC: 5A1221Z Performance of Cardiac Output, Continuous (ICD-10-PCS; 2019-09-07)
DX: I21.4 Non-ST elevation (NSTEMI) myocardial infarction (principal); I25.110 Atherosclerotic heart disease of native coronary artery with unstable angina pectoris; I10 Essential (primary) hypertension; F17.210 Nicotine dependence, cigarettes, uncomplicated; E11.65 Type 2 diabetes mellitus with hyperglycemia; Z90.89 Acquired absence of other organs; Z71.6 Tobacco abuse counseling
CPT/HCPCS: 36415; 36416; 36430; 71045; 76942; 80048; 80053; 80061; 82550; 82553; 83036; 83690; 83735; 84100; 84443; 84484; 85025; 85347; 85379; 85610; 85730; 86850; 86900; 86901; 93005; 93010; 93458; 93798; 94640; 94760; 99152; 99153; C1769; C1887; J0690; J1100; J1642; J1644; J1650; J1815; J1885; J2001; J2250; J2405; J2440; J2720; J3010; J3370; J3475; J3480; J7620; P9045; Q9967; S0017; S0028